=== PATIENT | female | born 1950 | race Caucasian/White ===

== ENCOUNTER 2020-05-20 16:27 | Observation (INO) | payer OTHER ==
[~2020-05-20] VITALS: Ht 172.7 cm; Wt 149.2 kg
--- NOTE | 2020-05-20 17:16 | PHYS DOC ---
Past History Past Medical History: CHF, Diabetes, GERD, Heart Disease, Hypertension (LUZ BENNETT DO) Alcohol Use: None (LUZ BENNETT DO) General Adult EDM: Chief Complaint: COUGH HPI: HPI: 69-year-old female presents with cough and shortness of breath. The patient has had worsening shortness of breath for a couple of weeks. She has been seen by her primary and placed on antibiotics. She dismissed them yesterday with no effect. The patient has a history of CHF. She was hospitalized back in April for several days to take off 30+ pounds of fluid. The patient feels like she did then. Patient had a COVID-19 test recently and it was negative. She denies fever or chills. She has worsening of her lower extremity edema bilaterally. (LUZ BENNETT DO) Review of Systems: Review of Systems: Constitutional: Denies fever or chills Eyes: Denies change in visual acuity HENT: Denies nasal congestion or sore throat Respiratory: Cough with shortness of breath Cardiovascular: Worsening lower extremity edema GI: Denies abdominal pain, nausea, vomiting, bloody stools or diarrhea : Denies dysuria Musculoskeletal: Denies back pain or joint pain Integument: Denies rash Neurologic: Denies headache, focal weakness or sensory changes Endocrine: Denies polyuria or polydipsia Lymphatic: Denies swollen glands Psychiatric: Denies depression or anxiety (LUZ BENNETT DO) Allergies: Allergies: Allergies Coded Allergies Type Severity Reaction Last Updated Verified Sulfa (Sulfonamide Antibiotics) Allergy Unknown 05/20/20 Yes (LUZ BENNETT DO) Physical Exam: PE: Constitutional: Well developed, well nourished, morbidly obese, no acute distress, non-toxic appearance. [] HENT: Normocephalic, atraumatic, bilateral external ears normal, oropharynx moist, no oral exudates, nose normal. [] Eyes: PERRLA, EOMI, conjunctiva normal, no discharge. [] Neck: Normal range of motion, no tenderness, supple, no stridor. [] Cardiovascular: Heart rate regular rhythm, no murmur [] Lungs & Thorax: Coughing. Coarse bilateral breath sounds [] Abdomen: Bowel sounds normal, soft, no tenderness, no masses, no pulsatile masses. [] Skin: Warm, dry, no erythema, no rash. [] Back: No tenderness, no CVA tenderness. [] Extremities: No tenderness, no cyanosis, no clubbing, ROM intact, bilateral edema 4+ to the lower thigh. [] Neurologic: Alert and oriented X 3, normal motor function, normal sensory function, no focal deficits noted. [] Psychologic: Affect normal, judgement normal, mood normal. [] (LUZ BENNETT ) Current Patient Data: Vital Signs: Vital Signs Date Time Temp Pulse Resp B/P (MAP) Pulse Ox O2 Delivery O2 Flow Rate FiO2 05/20/20 16:45 88 20 111/79 (90) 97 Room Air (LUZ BENNETT ) Labs: Laboratory Tests Test 05/20/20 17:32 White Blood Count 12.0 x10^3/uL (4.0-11.0) Red Blood Count 4.46 x10^6/uL (3.50-5.40) Hemoglobin 13.1 g/dL (12.0-15.5) Hematocrit 39.7 % (36.0-47.0) Mean Corpuscular Volume 89 fL (79-100) Mean Corpuscular Hemoglobin 29 pg (25-35) Mean Corpuscular Hemoglobin Concent 33 g/dL (31-37) Red Cell Distribution Width 13.7 % (11.5-14.5) Platelet Count 246 x10^3/uL (140-400) Neutrophils (%) (Auto) 61 % (31-73) Lymphocytes (%) (Auto) 27 % (24-48) Monocytes (%) (Auto) 9 % (0-9) Eosinophils (%) (Auto) 2 % (0-3) Basophils (%) (Auto) 1 % (0-3) Neutrophils # (Auto) 7.3 x10^3uL (1.8-7.7) Lymphocytes # (Auto) 3.2 x10^3/uL (1.0-4.8) Monocytes # (Auto) 1.1 x10^3/uL (0.0-1.1) Eosinophils # (Auto) 0.3 x10^3/uL (0.0-0.7) Basophils # (Auto) 0.1 x10^3/uL (0.0-0.2) Sodium Level 138 mmol/L (136-145) Potassium Level 3.8 mmol/L (3.5-5.1) Chloride Level 103 mmol/L (98-107) Carbon Dioxide Level 27 mmol/L (21-32) Anion Gap 8 (6-14) Blood Urea Nitrogen 24 mg/dL (7-20) Creatinine 0.8 mg/dL (0.6-1.0) Estimated GFR (Cockcroft-Gault) 71.3 BUN/Creatinine Ratio 30 (6-20) Glucose Level 58 mg/dL (70-99) Calcium Level 9.2 mg/dL (8.5-10.1) Total Bilirubin 0.3 mg/dL (0.2-1.0) Aspartate Amino Transf (AST/SGOT) 16 U/L (15-37) Alanine Aminotransferase (ALT/SGPT) 25 U/L (14-59) Alkaline Phosphatase 93 U/L (46-116) Troponin I Quantitative < 0.017 ng/mL (0-0.055) IS-Llm-R-Type Natriuretic Peptide 266 pg/mL (0-124) Total Protein 6.7 g/dL (6.4-8.2) Albumin 3.3 g/dL (3.4-5.0) Albumin/Globulin Ratio 1.0 (1.0-1.7) (SURENDRA PURYD DO) EKG: EKG: Sinus rhythm, rate 77, normal axis, no ST elevation or depression. [] (LUZ BENNETT DO) Radiology/Procedures: Radiology/Procedures: [] Impressions: INDICATION: Reason: SHORTNESS OF BREATH, cough / Spl. Instructions: / History: COMPARISON: None. FINDINGS: Single view of chest obtained. Cardiac silhouette is borderline enlarged but likely exaggerated by portable technique. The lung apices are external to the [id number]. Calcific atherosclerosis. Degenerative changes throughout the spine. Mild interstitial prominence within the left lung greater than right IMPRESSION: * Mild left greater than right interstitial prominence. This is a mild finding but mild pulmonary vascular congestion or early interstitial infiltrate can have this appearance. Electronically signed by: Frank Medina MD (05/20/2020 5:45 PM) [id number] DICTATED AND SIGNED BY: FRANK MEDINA MD DATE: 05/20/20 [id number] CC: LUZ BENNETT DO; PCP,NO ~ (LUZ BENNETT DO) Radiology/Procedures: PROCEDURE: CHEST AP ONLY INDICATION: Reason: SHORTNESS OF BREATH, cough / Spl. Instructions: / History: COMPARISON: None. FINDINGS: Single view of chest obtained. Cardiac silhouette is borderline enlarged but likely exaggerated by portable technique. The lung apices are external to the [id number]-wb-[id number]. Calcific atherosclerosis. Degenerative changes throughout the spine. Mild interstitial prominence within the left lung greater than right IMPRESSION: * Mild left greater than right interstitial prominence. This is a mild finding but mild pulmonary vascular congestion or early interstitial infiltrate can have this appearance. Electronically signed by: Frank Medina MD (05/20/2020 5:45 PM) [id number] (SURENDRA PURDY DO) Heart Score: Risk Factors: Risk Factors: DM, Current or recent (<one month) smoker, HTN, HLP, family history of CAD, obesity. Risk Scores: Score 0 - 3: 2.5% MACE over next 6 weeks - Discharge Home Score 4 - 6: 20.3% MACE over next 6 weeks - Admit for Clinical Observation Score 7 - 10: 72.7% MACE over next 6 weeks - Early Invasive Strategies (LUZ BENNETT DO) HEART Score for Chest Pain: HEART Score for Chest Pain Response (Comments) Value History Slighlty/Non-Suspicious 0 ECG Normal 0 Age > 65 2 Risk Factors >3 Risk Factors or Hx CAD 2 Troponin < Normal Limit 0 Total 4 Course & Med Decision Making: Course & Med Decision Making Pertinent Labs and Imaging studies reviewed. (See chart for details) The patient's work-up is pending. I am signing the patient out to Dr. Shell at 1800. [] (LUZ BENNETT DO) Course & Med Decision Making I received comprehensive signout from off going physician I went and saw patient and repeated the [place] aspects of history and physical exam, I reviewed entirety of work-up and discussed these at length with patient Given clinical presentation of hypervolemic state that is causing patient to be symptomatic, I feel she would benefit from IV diuresis and hospital admission for acute exacerbation of CHF. Patient was amenable to this Dr. London was called and case discussed, he was amenable to admission under his care for continued medical management Patient was updated on this decision and agreed, all questions and concerns addressed prior to ER departure to [facility] for further care (SURENDRA PURDY DO) Yolie Disclaimer: Yolie Disclaimer: This electronic medical record was generated, in whole or in part, using a voice recognition dictation system. (LUZ BENNETT DO) Departure Departure: Impression: Primary Impression: Acute exacerbation of CHF (congestive heart failure) Additional Impression: Morbid obesity Disposition: 09 ADMITTED INPT THIS HOSP ([place]) Admitting Physician: Papi London (SURENDRA PURDY DO) Condition: STABLE Referrals: PCP,NO (PCP) LUZ BENNETT DO May 20, 2020 17:16 SURENDRA PURDY DO May 20, 2020 19:22
--- NOTE | 2020-05-20 17:47 | RAD ---
INDICATION: Reason: SHORTNESS OF BREATH, cough / Spl. Instructions: / History: COMPARISON: None. FINDINGS: Single view of chest obtained. Cardiac silhouette is borderline enlarged but likely exaggerated by portable technique. The lung apices are external to the jymhz-do-gzyo. Calcific atherosclerosis. Degenerative changes throughout the spine. Mild interstitial prominence within the left lung greater than right IMPRESSION: * Mild left greater than right interstitial prominence. This is a mild finding but mild pulmonary vascular congestion or early interstitial infiltrate can have this appearance. Electronically signed by: Ambrosio Anderson MD (05/20/2020 5:45 PM) [id number]
--- NOTE | 2020-05-20 17:55 | EKG ---
[address] [address] Test Date: 2020-05-20 Test Time: 16:58:50 Pat Name: BEATRICE ROMERO Department: Room: Gender: F Resolution Agent: VALERI : 1950 Requested By: LUZ BENNETT Order Number: [id number] Reading MD: Measurements Intervals [place] Rate: 77 P: 8 IN: 156 QRS: 30 QRSD: 84 T: 42 QT: 364 QTc: 414 Interpretive Statements SINUS RHYTHM NORMAL ECG RI6.02 No previous ECG available for comparison
[2020-05-20 18:01] LABS: BASO # 0.1 x10^3/uL (0.0-0.2); BASO % 1 % (0-3); CALCIUM 9.2 mg/dL (8.5-10.1); CREATININE 0.8 mg/dL (0.6-1.0); EOS # 0.3 x10^3/uL (0.0-0.7); EOS % 2 % (0-3); GFR 71.3; HEMATOCRIT 39.7 % (36.0-47.0); HEMOGLOBIN 13.1 g/dL (12.0-15.5); LYMPH # 3.2 x10^3/uL (1.0-4.8); LYMPH % 27 % (24-48); MEAN CORPUSCULAR HEMOGLOBIN 29 pg (25-35); MEAN CORPUSCULAR HGB CONC 33 g/dL (31-37); MEAN CORPUSCULAR VOLUME 89 fL (79-100); MONO # 1.1 x10^3/uL (0.0-1.1); MONO % 9 % (0-9); NEUT # 7.3 x10^3uL (1.8-7.7); NEUT % 61 % (31-73); PLATELET COUNT 246 x10^3/uL (140-400); POTASSIUM 3.8 mmol/L (3.5-5.1); RED BLOOD COUNT 4.46 x10^6/uL (3.50-5.40); RED CELL DISTRIBUTION WIDTH 13.7 % (11.5-14.5)
[2020-05-20 18:14] LABS: ALBUMIN 3.3 g/dL (3.4-5.0); TOTAL BILIRUBIN 0.3 mg/dL (0.2-1.0); TOTAL PROTEIN 6.7 g/dL (6.4-8.2)
[2020-05-20] MEDS ORDERED: FUROSEMIDE 40 MG/4 ML VIAL IVP ONE (18:45)
[2020-05-20] MEDS ORDERED: NITROGLYCERIN SUBLINGUAL 0.4 MG BOTTLE OF 25. SL PRN (19:30)
[2020-05-20] MEDS ORDERED: ACETAMINOPHEN 325 MG TABLET PO PRN (19:30)
--- NOTE | 2020-05-20 21:35 | NUR ---
Pt was admitted to the floor this evening with a diagnosis of CHF. As soon as pt arrived on the floor she was demanding her scooter be brought to her or she was leaving the hospital. This RN explained upon report from ER nurse her scooter was going home with her daughter. Pt then started yelling she was leaving the hospital, and tearing off the groundwater monitoring technician and ripping off hospital gown. Pt started packing her belongings. At this time was notified of pt wanting to leave AMA. stated it was fine for her to go. The Nursing Pond Scaler at the time was notified of pts demand for the scooter and that she was going to leave AMA without it. The Pond Scaler was able to contact the pts daughter who was still in the parking lot reloading the scooter to have her bring the scooter back into the hospital. Once the pt received her scooter she was willing to stay for treatment.
[2020-05-20 22:21] VITALS: BP 140/77
[2020-05-20] MEDS ORDERED: GLUC-11 PO (22:44)
[2020-05-20] MEDS ORDERED: METH-38 PO (22:44)
[2020-05-20] MEDS ORDERED: HUM100VI5 SQ (22:44)
[2020-05-20] MEDS ORDERED: PRIM50TA24 PO (22:44)
[2020-05-20] MEDS ORDERED: POTA20TA4 PO (22:44)
[2020-05-20] MEDS ORDERED: BUME2TAB3 PO (22:44)
[2020-05-20] MEDS ORDERED: LOVA20TA2 PO (22:44)
[2020-05-20] MEDS ORDERED: LORA10TA3 PO (22:44)
[2020-05-20] MEDS ORDERED: DULO60CA6 PO (22:44)
[2020-05-20] MEDS ORDERED: GABA600T PO ×2 (22:44)
[2020-05-20] MEDS ORDERED: METO100T7 PO (22:44)
[2020-05-20] MEDS ORDERED: SPIR25TA5 PO (22:44)
[2020-05-20] MEDS ORDERED: MULT1CAP15 PO (22:44)
[2020-05-20] MEDS ORDERED: LOSA50TA86 PO (22:44)
[2020-05-20] MEDS ORDERED: PRIM250T28 PO (22:44)
[2020-05-20] MEDS ORDERED: NIAC500T26 PO (22:44)
[2020-05-20] MEDS ORDERED: METH20TA PO (22:44)
[2020-05-20] MEDS ORDERED: CALC625T PO (22:44)
[2020-05-20] MEDS ORDERED: CA C1TAB58 PO (22:44)
[2020-05-20] MEDS ORDERED: INSU100V11 IJ (22:44)
[2020-05-20] MEDS ORDERED: GARL10002 PO (22:44)
[2020-05-20] MEDS ORDERED: NORT25CA PO (22:44)
[2020-05-20] MEDS ORDERED: CLOP75TA57 PO (22:44)
[2020-05-20] MEDS ORDERED: OMEP20CA16 PO (22:44)
[2020-05-20] MEDS ORDERED: CRAN500T2 PO (22:44)
[2020-05-20] MEDS ORDERED: CYCL-331 PO (22:44)
[2020-05-20 23:13] VITALS: BP 141/83
[2020-05-20] MEDS ORDERED: BUMETANIDE 1 MG TABLET PO PRN (23:15)
[2020-05-20] MEDS ORDERED: METHYLPHENIDATE HCL PO PRN (23:15)
[2020-05-20] MEDS ORDERED: INSULIN REGULAR 100 UNIT/ML 3ML VIAL. SQ PRN (23:15)
[2020-05-20] MEDS ORDERED: CYCLOBENZAPRINE 10 MG TABLET. PO PRN (23:15)
[2020-05-20] MEDS ORDERED: CLOPIDOGREL BISULFATE 75 MG TABLET PO SCH (23:30)
[2020-05-20] MEDS ORDERED: GABAPENTIN 300 MG CAPSULE. PO SCH (23:30)
[2020-05-20] MEDS ORDERED: PRIMIDONE 250 MG TABLET PO SCH (23:30)
[2020-05-20] MEDS ORDERED: ATORVASTATIN CALCIUM 10 MG TABLET. PO SCH (23:30)
[2020-05-20] MEDS ORDERED: LOSARTAN 50 MG TABLET. PO SCH (23:30)
[2020-05-20] MEDS ORDERED: NORTRIPTYLINE 25 MG CAPSULE PO SCH (23:30)
[2020-05-20] MEDS ORDERED: METHOCARBAMOL 500 MG TABLET PO PRN (23:30)
[2020-05-20] MEDS ORDERED: METHYLPHENIDATE HCL 5 MG TABLET PO PRN ×2 (23:45)
[2020-05-20 23:50] VITALS: BP 141/83
--- NOTE | 2020-05-20 23:50 | NUR ---
This nurse then proceeded the admission process with the pt. During this process the pt stated she was sorry for acting that way and then became tearful. This RN tried to comfort the pt and let her know that things are ok and that she was glad she stayed. During the admission process pt was calm and cooperative and able to answer any questions this RN had for her. After pts medication was continued by the dr. this RN notified the pt that her meds were being verified by the pharmacy and would be given soon. Pt was able to take all meds whole with no complications.
--- NOTE | 2020-05-20 23:58 | NUR ---
Shortly after med pass pt checked her BS and notified this RN that she was going to need insulin this evening due to her sugar being at 234. This RN advised the pt that sugars under 300 do not generally get treated with new orders from the dr. The pt then stated she had orders for insulin and it is this RN's fault that she didn't get the meds done quick enough to administer insulin before the Pt ate her dinner. This RN then notified the pt that her meds were entered and verified by the dr as quick as possible and that the RN was sorry. Pt then demanded insulin again stating it would screw up her A1C if she didnt get it. 2nd RN then went in to pt room to educate the pt on how A1C's are calculated. Refer to SK RN's nursing note. Nursing office supervisor was notified of pts actions. This nurse then contacted dr for a one time dose of insulin. Dr gave an order for insulin. Pt then demanded a soda for her stomach being uneasy. Pt was given a diet sprite due to her being a diabetic. Pt refused the diet soda and demanded a regular sprite. Again nursing office supervisor was informed of pts demands. This RN gave the pt a regular sprite and explained that it would be the only time she received a regular soda at the hospital due to her being a diabetic. We have to go by the diabetic diet which mean no extra sugars. This RN also explained to the pt that she just demanded insulin due to her sugars being to high according to pt. So what since does it make if I am going to give you more sugar when your sugars are high and you are demanding insulin. pt the proceeded to drink the regular soda. pt received her one time dose of insulin at 0113.
--- NOTE | 2020-05-21 00:09 | NUR ---
PT deemed to be knowledge deficit on meaning of A1c by main RN. PT believes that one high blood sugar will equate to a high A1c and "wreck it". This RN attempted to educate PT and tried to explain the math behind an A1c as a 3-month average. She said she knows how to do math and I am wrong. I stated she could ask her daughter to do the math if she did not believe me. PT yelled at me to leave the room, yelling out that "you're an asshole!".
[2020-05-21] MEDS ORDERED: INSULIN REGULAR 100 UNIT/ML 3ML VIAL. SQ ONE (00:15)
[2020-05-21] MEDS ORDERED: INSULIN LISPRO 300 UNITS/3 ML VIAL. SQ ONE (00:30)
--- NOTE | 2020-05-21 01:10 | NUR ---
I was notified by the staff that the patient was unhappy and being verbally aggressive toward staff. The team did not request my assistance at that time. Will continue to check in with staff for administration, support, and de-escalation as needed.
--- NOTE | 2020-05-21 01:13 | NUR ---
After insulin administration pt wanted to know if she was given her HS dose of omeprazole. This RN told the pt she would check to verify if she was given the medication or not. This RN looked at the pts med rec. Omeprazole isnt available at this hospital so the pharmacy change the med to Protonix Extended Release. This RN then when back in to the pt room to explain why she was not given the medication this evening due to the hospital not caring the specific medication. This RN also explained the medication would begin in the morning due to it being an extended release tablet. Pt wouldnt except the RN explanation of why the med wasnt given. Pt then stated why am I her? This RN then told pt she was here because of CHF and that she was receiving treatment for it, and that down in the ED she was given Lasix to help Diurese her. Pt then wanted to know why she wasnt getting Lasix this evening. This RN then told the pt lasix isnt giving in the evening due to it keeping pt's up all night having to urinate. Pt then stated she wanted a brief and an external catheter so she could receive lasix tonight. This RN then stated we dont treat people with lasix in the evening and just put on a brief and a external catheter so they can sleep. Then we have to worry about skin break down from the moisture collecting in the brief. Pt then stated oh bullshit and once again would expect any explanation for treatment. Pt then stated she wanted to leave. Nursing lubrication supervisor was notified of pts request.
--- NOTE | 2020-05-21 01:18 | NUR ---
Staffed called to report the patient wanted to go AMA. I proceeded to the room to talk to the patient regarding her concerns. The patient was in the restroom; I explained I would come back when she was done. I waited outside the room and heard her scooter moving in the room; I knocked and proceeded to enter. I introduced myself and asked what was going on. Patient stated, "I'm leaving this hospital. Give me my AMA paperwork." I asked if there was anything I could do to pursue her to stay. She stated, "This is just another [facility]. My a year ago, and he would never go to [facility]." I explained that the hospitals were different but owned by the same company. She stated, "It's the same management." At this time, the patient was in her scooter with her back to me, getting dressing in her clothes. I explained that I would like to go over a few things with her before she left. I discussed the risks of leaving the hospital, the possibility that insurance might not pay for the hospitalization, possible , worsening medical condition, or disability. The patient continued to gather personal belongings. She pulled out her saline lock in her right upper arm and threw the saline lock on the floor. The saline catheter tip was intact. Caro STRONG entered the room with the AMA paperwork. I tried to discuss the plan of care with the patient. She stated, "You haven't done anything for me. I have chest pain." Caro STRONG tried to explain what they were doing to monitor and treat her chest pain. The patient cut her off. The patient was yelling as she spoke and pushed the patient table aggressively toward staff. I asked the patient if she could please not yell at me. The patient refused. I maintained a safe distance from the patient for safety. I held the AMA paperwork toward the patient and asked if she would sign it. The patient started to leave the room. I asked again if she would sign. In her hasty exit, she bumped her scooter into the wall. She said she was not refusing to sign the paperwork as she sped out of the room. Addendum: 05/21/20 at 0242 by MARLENE HARVEY RN I asked if there was anything I could do to persuade her to stay.
--- NOTE | 2020-05-21 01:20 | NUR ---
This RN and Nursing Systems Checkout Mechanic went in to pts room to educate her on leaving AMA in hopes she would change her mind so she could receive treatment. The pt was completely dressed in the clothes she came in, had ripped out her IV and was moving about on her scooter in her room gathering her things. Pt was bumping in to the table not caring if she ran things in to the nurses. Pt was educated on circumstances if she left and how it could affect her health. Pt refused to sign the AMA paperwork. Pt left her room with all her belongings and wearing weather appropriate clothes. Pt was escorted out by this RN and nurse aid. Pt left in her own vehicle. Daughter was called at [phone] by Nursing Systems Checkout Mechanic.
--- NOTE | 2020-05-21 01:35 | NUR ---
I contacted the patient's daughter about her mother's AMA because she was listed as the designated spokesperson. A message was left on her voicemail. The hospital number was given in case she wanted talk to me or had further questions.
--- NOTE | 2020-05-21 01:37 | NUR ---
Security notified of patients and AMA. A request was made to monitor the patient's exit of the hospital property. The security system sales consultant confirmed the request via radio.
[2020-05-21] MEDS ORDERED: GABAPENTIN 300 MG CAPSULE. PO SCH (07:00)
[2020-05-21] MEDS ORDERED: PANTOPRAZOLE 40 MG TABLET. PO SCH (07:30)
[2020-05-21] MEDS ORDERED: NIACIN ER 500 MG TABLET.ER PO SCH (09:00)
[2020-05-21] MEDS ORDERED: SPIRONOLACTONE 25 MG TABLET PO SCH (09:00)
[2020-05-21] MEDS ORDERED: CALCIUM POLYCARBOPHIL 625 MG TABLET PO SCH (09:00)
[2020-05-21] MEDS ORDERED: PRIMIDONE 50 MG TABLET PO SCH (09:00)
[2020-05-21] MEDS ORDERED: MULTIVITAMIN with MINERAL TABLET. PO SCH (09:00)
[2020-05-21] MEDS ORDERED: NON FORMULARY ITEM (Glucosamine Hcl/Chondr Su A Na (Cidaflex Tablet) 1 TAB) PO SCH (09:00)
[2020-05-21] MEDS ORDERED: POTASSIUM CHLORIDE 10 MEQ TABLET.ER. PO SCH (09:00)
[2020-05-21] MEDS ORDERED: MAG OX PO SCH (09:00)
[2020-05-21] MEDS ORDERED: GLUC PO SCH (09:00)
[2020-05-21] MEDS ORDERED: DULoxetine HCL 60 MG CAPSULE.DR PO SCH (09:00)
[2020-05-21] MEDS ORDERED: CETIRIZINE HCL 10 MG TABLET PO SCH (09:00)
[2020-05-21] MEDS ORDERED: CA CARB PO SCH (09:00)
[2020-05-21] MEDS ORDERED: INSULIN NPH/REG HUM 70/30 300 UNITS/3 ML VIAL. SQ SCH (09:00)
--- NOTE | 2020-05-21 12:33 | HP ---
ADMIT DATE: 05/21/2020 The patient is a 69-year-old female who was admitted to the ED on the evening of 05/20/2020 at 1922 hours. I spoke with . ____ who asked me to admit her. She had a diagnosis of congestive heart failure exacerbation along with morbid obesity. She was given Lasix and admitted to my service. However, shortly after getting here, the patient became dissatisfied and decided to leave against medical advice. Therefore, she left the hospital AMA before I had a chance to see her. RAUL SILVA MD DR: DA/louie JOB#: [id number] / [id number]
[2020-05-30] MEDS ORDERED: METOPROLOL TART IMMED RELEASE 50 MG TABLET PO SCH (23:30)
== END 2020-05-21 01:30 | disposition left against medical advice (07) ==
LOC: ER 16:27 → 1 SOUTH 21:30 → INTOOBSV 21:30 → 1 SOUTH 21:31
PROVIDERS: ADMIT Hospitalist; ATTEND Hospitalist
DX: I11.0 Hypertensive heart disease with heart failure (principal); I50.9 Heart failure, unspecified; E11.9 Type 2 diabetes mellitus without complications; K21.9 Gastro-esophageal reflux disease without esophagitis; E66.01 Morbid (severe) obesity due to excess calories; Z68.43 Body mass index [BMI] 50.0-59.9, adult; Z79.899 Other long term (current) drug therapy
CPT/HCPCS: 36415; 71045; 80053; 83880; 84484; 85025; 93005; 96372; 96374; 99285; G0378; J1815; J1940; G0379